=== PATIENT | female | born 1985 | race Caucasian/White ===

== ENCOUNTER 2017-06-01 05:06 | Emergency (ER) | payer MEDICARE, MEDICAID ==
--- NOTE | 2017-06-01 05:37 | C.PDOC ---
History Of Present Illness 31 year old female with a Hx of schizophrenia who presents to the ER with a complaint of worsening anxiety, requesting to talk to demolition worker. Denies SI, HI, or physical complaints. Time Seen by Provider: 06/01/17 05:35 Chief Complaint (Nursing): Psychiatric Evaluation History Per: Patient History/Exam Limitations: no limitations Onset/Duration Of Symptoms: Hrs Current Symptoms Are (Timing): Still Present Suicide/Self Injury Attempted (Context): None Modifying Factor(s): None Severity: None Pain Scale Rating Of: 0 Associated Symptoms: Anxiety. denies: Depression, Suicidal Thoughts, Suicidal Plan Involuntary Hold By: None Recent travel outside of the [place]: No Past Medical History Reviewed: Historical Data, Nursing Documentation, Vital Signs Vital Signs: Last Vital Signs Temp 98.2 F 06/01/17 05:16 Pulse 87 06/01/17 05:16 Resp 16 06/01/17 05:16 BP 117/88 06/01/17 05:16 Pulse Ox 97 06/01/17 06:14 - Medical History PMH: Anxiety, Bipolar Disorder, Depression, Gastrointestinal Ulcer, Schizophrenia (Schizoaffective disorder.) Surgical History: No Surg Hx - [facility] INDIVIDUAL PSYCHOTHERAPY, SUPPORTIVE (08/25/15) Family History: States: Unknown Family Hx - Social History Hx Tobacco Use: No Hx Alcohol Use: Yes (states at times) Hx Substance Use: No - Immunization History Hx Tetanus Toxoid Vaccination: No Hx Influenza Vaccination: No Hx Pneumococcal Vaccination: No Review Of Systems Constitutional: Negative for: Fever, Chills Gastrointestinal: Negative for: Nausea, Vomiting, Diarrhea Psych: Positive for: Anxiety. Negative for: Suicidal ideation Physical Exam - Physical Exam Appears: Non-toxic, No Acute Distress Skin: Warm, Dry Oral Mucosa: Moist Chest: Symmetrical, No Tenderness Cardiovascular: Rhythm Regular, No Murmur Respiratory: No Rales, No Rhonchi, No Wheezing Gastrointestinal/Abdominal: Soft, No Tenderness Neurological/Psych: Oriented x3 ED Course And Treatment O2 Sat by Pulse Oximetry: 97 (Room air) Pulse Ox Interpretation: Normal Progress Note: pt was cleared for discharge by dr aden Reevaluation Time: 07:03 Reassessment Condition: Improved Disposition Counseled Patient/Family Regarding: Studies Performed, Diagnosis, Need For Followup - Disposition Disposition: HOME/ ROUTINE Disposition Time: 05:37 Condition: FAIR Instructions: Anxiety (ED) Forms: [facility] ([place]) - Clinical Impression Clinical Impression: Anxiety - Scribe Statement The provider has reviewed the documentation as recorded by the Scribe Darryl Villanueva All medical record entries made by the Scribe were at my direction and personally dictated by me. I have reviewed the chart and agree that the record accurately reflects my personal performance of the history, physical exam, medical decision making, and the department course for this patient. I have also personally directed, reviewed, and agree with the discharge instructions and disposition.
[2017-06-01 07:11] VITALS: BP 118/83; PULSE 82; RESP 20; TEMP 98.4; O2SAT 99
== END 2017-06-01 07:10 | disposition home or self-care (01) ==
LOC: C.ER 05:06
DX: F41.9 Anxiety disorder, unspecified (principal)

== ENCOUNTER 2017-06-02 09:41 | Emergency (ER) | payer MEDICARE, MEDICAID ==
[2017-06-02 09:50] VITALS: BP 118/72; PULSE 89; RESP 20; TEMP 98.2; O2SAT 97
--- NOTE | 2017-06-02 10:46 | C.PDOC ---
History Of Present Illness I went to see this patient, but could not find her. I was informed by the staff that the pt had left prior to being seen. Time Seen by Provider: 06/02/17 10:08 Chief Complaint (Nursing): Anxiety Past Medical History Vital Signs: Last Vital Signs Temp 98.2 F 06/02/17 09:49 Pulse 89 06/02/17 09:49 Resp 20 06/02/17 09:49 BP 118/72 06/02/17 09:49 Pulse Ox 97 06/02/17 09:49 - Medical History PMH: Anxiety, Bipolar Disorder, Depression, Gastrointestinal Ulcer, Schizophrenia (Schizoaffective disorder.) Denies: Diabetes, Hepatitis, HIV, HTN, Chronic Kidney Disease, Seizures, Sexually Transmitted Disease - [facility] INDIVIDUAL PSYCHOTHERAPY, SUPPORTIVE (08/25/15) Family History: States: Unknown Family Hx - Social History Hx Tobacco Use: No Hx Alcohol Use: Yes (states at times) Hx Substance Use: No - Immunization History Hx Tetanus Toxoid Vaccination: No Hx Influenza Vaccination: No Hx Pneumococcal Vaccination: No ED Course And Treatment O2 Sat by Pulse Oximetry: 97 Disposition - Disposition Disposition: LEFT W/O BEING SEEN - ER ONLY Disposition Time: 10:30 Condition: UNKNOWN - Clinical Impression Clinical Impression: Patient left before evaluation by physician
== END 2017-06-02 10:45 | disposition left against medical advice (07) ==
LOC: C.ER 09:41
DX: F41.9 Anxiety disorder, unspecified (principal); Z02.9 Encounter for administrative examinations, unspecified